=== PATIENT | male | born 1970 ===

== ENCOUNTER 2019-02-28 16:36 | Outpatient (REF) | payer OTHER, SELFPAY ==
[2019-03-02 13:02] LABS: PSA, Screening 0.8 ng/mL (0.0-2.5)
== END 2019-02-28 16:56 ==
LOC: NCHCN 16:36
PROVIDERS: Visit Provider Nurse Practitioner Community Health
DX: Z12.5 Encounter for screening for malignant neoplasm of prostate (principal); Z80.42 Family history of malignant neoplasm of prostate
CPT/HCPCS: 84153

== ENCOUNTER 2019-11-16 10:54 | Outpatient (REF) | payer OTHER, SELFPAY ==
[2019-11-20 13:33] LABS: SARS-CoV-2 RNA Undetected (Undetected); SARS-CoV-2 Specimen Source Nasopharynx
== END 2019-11-16 11:14 ==
LOC: NCHCN 10:54
PROVIDERS: PCP Nurse Practitioner Community Health; Visit Provider Nurse Practitioner Community Health
DX: Z11.59 Encounter for screening for other viral diseases (principal)
CPT/HCPCS: U0003

== ENCOUNTER 2020-09-03 18:40 | Outpatient (REF) | payer OTHER, SELFPAY ==
[2020-09-04 17:52] LABS: PSA, Screening 1.1 ng/mL (0.0-2.5)
== END 2020-09-03 18:41 | disposition home or self-care (01) ==
LOC: NCHCN 18:40
PROVIDERS: PCP Nurse Practitioner Community Health; Visit Provider Nurse Practitioner Community Health
DX: Z12.5 Encounter for screening for malignant neoplasm of prostate (principal); Z80.42 Family history of malignant neoplasm of prostate
CPT/HCPCS: 84153